=== PATIENT | male | born 1955 | race Caucasian/White ===

== ENCOUNTER → 2018-01-29 | Day surgery (SDC) | payer MEDICARE ==
[~2018-01-29] MED LIST: ACETAMINOPHEN 1000 MG/100 ML 100 ML IV; ACETAMINOPHEN/HYDROcodone 325 MG/5 MG TAB; BACITRACIN TOP OINT 15 GM TUBE; DEXAMETHASONE SOD PHOS 4 MG/ML VIAL IV; DO NOT ADM ANY ANTICOAGULANT DRUGS; GLYCOPYRROLATE 1 MG/5 ML SYRINGE IV PUSH; LACTATED RINGER'S 1000 ML INJ 1,000 ML IV; LIDOCAINE HCL 1% PF 5 ML SYRINGE OTHER; METOPROLOL TARTRATE 25 MG TAB PO; MIDAZOLAM HCL 2 MG/2 ML VIAL; NEOSTIGMINE 5 MG/5 ML SYRINGE IV PUSH; ONDANSETRON HCL 4 MG/2 ML VIAL IV; PHENYLEPH/NS 1000 MCG/10 ML SYR IV; PROPOFOL 200 MG/20 ML AMP IV; ROCURONIUM INJ 50 MG/5 ML SYRINGE IV PUSH; SODIUM CHLORID 0.9% 500 ML IV; SUCCINYLCHOLINE CHLORIDE 100 MG/5 ML SYRINGE IV PUSH; ceFAZolin INJ 1,000 MG VIAL IV; ePHEDrine/NS 25 MG/5 ML SYRINGE IV
[2018-01-29] MEDS: CHLORHEXIDINE GLUCONATE 2 % 1 PACK (2 CLOTHS) TOPICAL (06:10)
[2018-01-29] MEDS: LACTATED RINGER'S 1000 ML IV (07:04)
[2018-01-29] MEDS: POVIDONE IODINE 5% (ANTISEPSIS KIT) 4 APPLICATIONS EACH NARE (07:04)
[2018-01-29 07:29] LABS: AUTOMATED NEUTROPHIL # 3.2 TH/MM3 (1.8-7.7); BASOPHIL # 0.1 TH/MM3 (0-0.2); EOSINOPHIL # 0.1 TH/MM3 (0-0.4); EOSINOPHIL % 2.5 % (0.0-4.0); HEMATOCRIT 45.3 % (39.0-51.0); HEMO FLAGS DIFF FINAL; HEMOGLOBIN 15.8 GM/DL (13.0-17.0); LYMPH % 26.6 % (9.0-44.0); LYMPHOCYTE # 1.4 TH/MM3 (1.0-4.8); MEAN CELL VOLUME 95.1 FL (80.0-100.0); MEAN CORPUSCULAR HEMOGLOBIN 33.3 PG (27.0-34.0); MEAN PLATELET VOLUME 9.2 FL (7.0-11.0); MONO % 10.1 % (0.0-8.0); MONOCYTE # 0.5 TH/MM3 (0-0.9); NEUT % 59.8 % (16.0-70.0); PLATELET COUNT 220 TH/MM3 (150-450); RED BLOOD COUNT 4.76 MIL/MM3 (4.50-5.90); RED CELL DISTRIBUTION WIDTH 12.9 % (11.6-17.2); WHITE BLOOD COUNT 5.4 TH/MM3 (4.0-11.0)
[2018-01-29 07:45] LABS: ANION GAP 8 MEQ/L (5-15); BICARBONATE 26.5 MEQ/L (21.0-32.0); BLOOD UREA NITROGEN 11 MG/DL (7-18); CHLORIDE 108 MEQ/L (98-107); GLOMERULAR FILTRATION RATE 85 ML/MIN (>89); GLUCOSE,RANDOM 89 MG/DL (74-106); POTASSIUM 4.1 MEQ/L (3.5-5.1); SODIUM (NA) 142 MEQ/L (136-145)
[2018-01-29] MEDS: ceFAZolin 2 GM/DEX PREMIX 50 ML IV (07:48)
[2018-01-29] MEDS: LIDOCAINE 1%/EPINEPHrine 1:100,000 SOLN 30 ML VIAL (08:37)
[2018-01-29] MEDS: ACETAMINOPHEN/HYDROcodone 325 MG/5 MG TAB PO (10:30)
== END | disposition home or self-care (01) ==
LOC: HSDC 05:56
DX: R59.0 Localized enlarged lymph nodes (principal); B36.0 Pityriasis versicolor; I25.10 Atherosclerotic heart disease of native coronary artery without angina pectoris
CPT/HCPCS: 00320; 80048; 85025; 87015; 87070; 87102; 87116; 87176; 87205; 87206; 88305; 88331; 88341; 88342; 93005